=== PATIENT | female | born 1985 | race Caucasian/White ===

== ENCOUNTER 2019-06-27 14:32 | Emergency (ER) | payer OTHER, SELFPAY ==
[2019-06-27 14:44] VITALS: BP 118/73; PULSE 72; RESP 16; TEMP 37; O2SAT 99
--- NOTE | 2019-06-27 14:57 | ED.LOWEXIN ---
HPI - Extremity Injury (Lower) General Chief Complaint: Extremity Injury, Lower Stated Complaint: R/knee injury Time Seen by Provider: 06/27/19 14:58 Source: patient and RN notes reviewed History of Present Illness HPI Narrative: Patient is a 34-year-old female presents the urgent care with complaints of right knee pain. Patient states that she had surgery approximately 6 months ago and she twisted it yesterday while walking on some yard rocks. 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 Patient states that she did follow-up with her orthopedic, who will not see her because of her insurance change. Patient has been using ibuprofen without much relief. Patient is tearful. No other acute complaints. No acute distress noted. Patient with plan of care. Related Data Allergies Allergy/AdvReac Type Severity Reaction Status Date / Time No Known Allergies Allergy Mild Verified 06/27/19 15:00 Review of Systems Review of Systems: Narrative: CONSTITUTIONAL: Denies fever, chills, or sweats. EYES: Denies visual changes, redness, or discharge. ENT: Denies rhinorrhea, congestion, sore throat, or otalgia. CARDIOVASCULAR: Denies chest pain, palpitations, or edema. RESPIRATORY: Denies cough or dyspnea. GASTROINTESTINAL: Denies abdominal pain, nausea, vomiting, or diarrhea. GENITOURINARY: Denies dysuria or hematuria. SKIN: Denies rash or itching. MUSCULOSKELETAL: Reports of right knee pain NEUROLOGIC: Denies headache, numbness, or weakness. All other systems reviewed are negative, except as documented in HPI. PMFSH Comments At the time of my signature, I reviewed and agree with the nursing past medical, surgical, social, and family history. There is no relevant family history pertinent to the patient complaint. Exam Narrative: Exam Narrative: GENERAL: This is a well-nourished, well-developed patient, in no apparent distress. HEAD: normocephalic, atraumatic. EYES: PERRL. Sclera clear/white. Vision is grossly intact. EARS: External ears normal NOSE: External nose normal with no obvious nasal discharge THROAT: Mucous membranes moist NECK: Neck supple CARDIOVASCULAR: Regular rate and rhythm without murmurs, gallops, or rubs. RESPIRATORY: Clear to auscultation. Breath sounds equal bilaterally. No wheezes, rales, or rhonchi. SKIN: warm, intact with no suspicious lesions or rash, good texture and turgor. NEURO: awake, alert, and oriented to person, place and time. There were no obvious focal neurologic abnormalities. EXTREMITIES: Slight edema and ecchymosis noted to the right anterior knee without obvious deformity. Moderate tenderness to the anterior joint space. Course Vital Signs Vital signs: Vital Signs Temperature 98.6 F 06/27/19 14:44 Pulse Rate 72 06/27/19 14:44 Respiratory Rate 16 06/27/19 14:44 Blood Pressure 118/73 06/27/19 14:44 Pulse Oximetry 99 06/27/19 14:44 Temperature 98.6 F 06/27/19 14:44 Pulse Rate 72 06/27/19 14:44 Respiratory Rate 16 06/27/19 14:44 Blood Pressure 118/73 06/27/19 14:44 Pulse Oximetry 99 06/27/19 14:44 Reviewed MDM - Extremity Injury (Lower) MDM Narrative Medical decision making narrative: Advised the patient to wear the knee immobilizer as directed. Continue to use crutches as directed until activity as tolerated. Use pain medication as needed. Make sure to eat and drink with the medication. Elevate and continue to use ice for comfort/pain. Follow-up with orthopedic as directed within 1 week for reevaluation. Differential Diagnosis Differential diagnosis: Likely acute internal derangement of knee Critical Care Time Critical Care Time Critical Care Time: No Discharge Plan Discharge Clinical Impression: Strain of right knee Qualifiers: Encounter type: initial encounter Qualified Code(s): S86.911A - Strain of unspecified muscle(s) and tendon(s) at lower leg level, right leg, initial encounter Patien
== END 2019-06-27 15:15 | disposition home or self-care (01) ==
PROVIDERS: Emergency Provider Nurse Practitioner Family
DX: S86.811A Strain of other muscle(s) and tendon(s) at lower leg level, right leg, initial encounter (principal); X50.9XXA Other and unspecified overexertion or strenuous movements or postures, initial encounter
CPT/HCPCS: 99203; G0463; L1830

== ENCOUNTER 2020-10-15 18:24 | Emergency (ER) | payer OTHER, SELFPAY ==
--- NOTE | ~2020-10-15 | XR_ITS ---
XR chest 2V DATE: 10/15/2020 18:58 INDICATION: Cough, shortness of breath. Possible exposure distal for. TECHNIQUE: 2 views COMPARISON: 03/04/2010 AP chest FINDINGS: Normal heart size. No hilar or mediastinal enlargement. Bilateral hyperinflation. No pulmonary infiltrate or consolidation, pleural effusion or pulmonary vas cular congestion or pneumothorax. IMPRESSION: Bilateral hyperinflation; no active cardiopulmonary disease Reviewed, dictated and finalized at location A.
[2020-10-15 18:31] VITALS: BP 152/78; PULSE 84; RESP 18; TEMP 37.3; O2SAT 100
[2020-10-15 18:44] VITALS: BP 152/78; PULSE 84; RESP 18; TEMP 37.3; O2SAT 100
--- NOTE | 2020-10-15 19:02 | ED.URI ---
HPI - URI/Sore Throat General Chief Complaint: Upper Respiratory Infection Stated Complaint: Loss of taste, Throat burning Time Seen by Provider: 10/15/20 18:55 Source: patient Mode of arrival: ambulatory Limitations: no limitations History of Present Illness HPI Narrative: Nneka Bowen is a 35 yo female with no PMH. who is very Anxious[place] the sulfur spilled was and says that there were fumes at her house she started to experience shortness of breath in the middle the night and left her house this morning she says her throat is very scratchy she is having nasal discharge which is clear, she also says that she has no sense of taste and things have a metal taste to them. She is worried that she is having some respiratory distress due to either exposure or some virus She is a smoker and occasional drinker family history includes hypertension and her uncle who lives with her schizophrenic Related Data Allergies Allergy/AdvReac Type Severity Reaction Status Date / Time No Known Allergies Allergy Mild Verified 10/15/20 18:43 Review of Systems Review of Systems: Narrative: CONSTITUTIONAL: Denies fever, chills, sweats. EYES: Denies visual changes, redness, discharge. ENT: Has rhinorrhea, no congestion, has sore throat, otalgia. CARDIOVASCULAR: Denies chest pain, palpitations, edema. RESPIRATORY: Denies dyspnea, wheezing, mild dry cough GASTROINTESTINAL: Denies abdominal pain, nausea, vomiting, diarrhea. GENITOURINARY: Denies dysuria, hematuria, abnormal discharge SKIN: Denies rash or itching. NEUROLOGIC: Denies numbness, or focal weakness. PSYCHIATRIC: Has anxiety no depression. [facility] Past Medical History Medical History No acute medical problems Family History Family History Mother Hypertension Other Schizophrenia Social History Social History (Updated 10/15/20 @ 19:07 by Snow Rowland CNP) Smoking packs per day: 0.5 Smoking cigarettes per day: 10.0 Smoking status: Current every day smoker Tobacco type: cigarettes Alcohol intake: current Comments At time of signature, I agree with nursing past medical, surgical, social and family history. There is no relevant family history pertinent to the presenting complaint. Patient is very anxious and blood pressure is elevated will refer to primary care physician at discharge Exam Narrative: Exam Narrative: GENERAL: This is a well-nourished, well-developed patient, in mild distress. States feels short of breath HEAD: normocephalic, atraumatic. EYES: PSclera clear/white. Vision is grossly intact. EARS: External ears normal, auditory canals clear and without drainage, TMs normal without perforation. Hearing grossly intact. NOSE: External nose normal without nasal discharge, nares without redness, has rhinorrhea. THROAT: Mucous membranes moist, posterior pharynx erythema with clear drainage and posterior pharynx NECK: Neck supple, non-tender CARDIOVASCULAR: Regular rate and rhythm without murmurs, gallops, or rubs. RESPIRATORY: Clear to auscultation. Breath sounds equal bilaterally. No wheezes, rales, or rhonchi. GASTROINTESTINAL: Abdomen soft, SKIN: warm, intact with no suspicious lesions or rash, good texture and turgor. NEURO: awake, alert, and oriented to person, place and time. There were no obvious focal neurologic abnormalities. Steady gait EXTREMITIES: Normal range of motion. BACK: Nontender without deformity Course Course Emergency Course: Patient came to [facility] with complaints of feeling shortness of breath and discharge and loss of taste due to potential exposure to sulfuric acid spill and or other viral illness such as Covid Covid rapid was negative -PCR sent Chest x-ray shows bilateral hyperinflation no pleural effusion or pulmonary vascularity Strep test negative We will give patient prednisone and albuterol i
[2020-10-18 21:52] LABS: SARS-CoV-2 RNA PCR Negative
== END 2020-10-15 19:32 | disposition home or self-care (01) ==
PROVIDERS: Emergency Provider Nurse Practitioner
DX: J06.9 Acute upper respiratory infection, unspecified (principal); Z77.098 Contact with and (suspected) exposure to other hazardous, chiefly nonmedicinal, chemicals; Z20.822 Contact with and (suspected) exposure to COVID-19; F17.210 Nicotine dependence, cigarettes, uncomplicated
CPT/HCPCS: 71046; 87081; 87426; 87880; 99213; C9803; G0463; U0003; U0005

== ENCOUNTER 2021-06-19 13:02 | Emergency (ER) | payer OTHER, SELFPAY ==
--- NOTE | ~2021-06-19 | XR_ITS ---
EXAMINATION: XR hip BI 2V w AP pelvis EXAM DATE: 06/19/2021 14:39 INDICATION: Generalized Bruising And Soreness From Multiple Falls TECHNIQUE: Each hip imaged independently (separate right and also left hip) crosstable lateral and ' frog-leg' and frontal projections for interpretation. Frontal projection pelvis. There is no prior study for comparison. FINDINGS: No radiographic evidence of hip avascular necrosis. Left femoral neck bone island. There is minimal symmetric bilateral hip primary osteoarthritis. There are no acute fractures or dislocatio ns identified. There is no subcutaneous gas. The soft tissue is unremarkable. There are no radiop aque foreign bodies. IMPRESSION: 1. XR hip BI 2V w AP pelvis exam without acute osseous findings. Reviewed, dictated and finalized at location . [facility]
--- NOTE | ~2021-06-19 | XR_ITS ---
XR ribs LT 2V 06/19/2021 13:22 Indication: Status post fall. Left shoulder pain. Procedure: 3 views of the left ribs Comparison: 10/15/2020 Findings: No acute displaced left rib fracture. There is a nondisplaced fracture of the left humeral head at the lesser tuberosity. There is anatomic alignment of the shoulder. No significant soft tissu e abnormality.. Impression: 1: Nondisplaced fracture left humeral head at the lesser tuberosity. 2: No acute displaced left rib fracture. Reviewed, dictated and finalized at location A. R OPERATOR Impression: 1: Nondisplaced fracture left humeral head at the lesser tuberosity. 2: No acute displaced left rib fracture.
--- NOTE | ~2021-06-19 | XR_ITS ---
EXAMINATION: XR hand RT min 3V EXAM DATE: 06/19/2021 14:39 INDICATION: Dorsal Bruising From Multiple Falls TECHNIQUE: Right hand frontal, lateral and oblique projections obtained and reviewed. There is no pr ior study for comparison. FINDINGS: There is an old right 5th metacarpal shaft fracture. There are no acute fractures or disloc ations identified. There is no subcutaneous gas. The soft tissue is unremarkable. There are no ra diopaque foreign bodies. IMPRESSION: 1. XR hand RT min 3V exam without acute osseous findings. Reviewed, dictated and finalized at location G. SECURITY ARCHITECT
--- NOTE | ~2021-06-19 | XR_ITS ---
EXAMINATION: XR forearm RT 2V EXAM DATE: 06/19/2021 14:39 INDICATION: Generalized Bruising And Soreness From Multiple Falls TECHNIQUE: Right forearm frontal and lateral projections obtained and reviewed. There is no prior st udy for comparison. FINDINGS: There are no acute fractures or dislocations identified. There is no subcutaneous gas. Th e soft tissue is unremarkable. There are no radiopaque foreign bodies. IMPRESSION: 1. XR forearm RT 2V exam without acute osseous findings. Reviewed, dictated and finalized at location G. X SYSTEMS ADMINISTRATOR
[2021-06-19 13:08] VITALS: BP 107/68; PULSE 86; RESP 16; TEMP 37.3; O2SAT 100
--- NOTE | 2021-06-19 14:52 | ED.GENADULT ---
HPI - General Adult General Chief complaint: Back Pain/Injury Stated complaint: rib injury Source: patient Mode of arrival: ambulatory Limitations: no limitations History of Present Illness HPI narrative: Patient presents for evaluation after sustaining a fall 3 days ago. She indicates she fell down steps at home after she slipped on a shoe. She did hit her head. No LOC. Not on blood thinners. No vomiting since that time. She did land on her buttocks. She has bruising to her bilateral buttocks, right hand, right forearm, posterior aspect of proximal left upper arm and posterior left ribs. Reports pain in the right arm is 4 out of 10, right hand 5 out of 10, left upper arm 4 out of 10, bilateral buttocks 4 out of 10, left ribs 10 out of 10. Her primary concern is her left rib pain. She feels like she has a rib fracture. Deep inspiration and movement make her symptoms worse. She has taken tylenol for her pain with some improvement. She states pain from her posterior ribs is shooting pain into her sternum. She states that she did fracture her proximal left humerus three months ago after another fall. She wore a sling for one month. She states that orthopedist, Dr. Burton, the fracture is a small piece of bone pointing up . Related Data Allergies Allergy/AdvReac Type Severity Reaction Status Date / Time No Known Allergies Allergy Mild Verified 06/19/21 13:53 Review of Systems Review of Systems: CONSTITUTIONAL: Denies fever, chills, or sweats. EYES: Denies visual changes, redness, or discharge. ENT: Denies rhinorrhea, congestion, sore throat, or otalgia. CARDIOVASCULAR: Reports chest pain. Denies palpitations, or edema. RESPIRATORY: Denies cough or dyspnea. GASTROINTESTINAL: Denies abdominal pain, nausea, vomiting, or diarrhea. GENITOURINARY: Denies dysuria or hematuria. SKIN: Reports bruising to the right hand, forearm, bilateral buttocks, left upper arm, left ribs MUSCULOSKELETAL: Reports pain in right hand, right forearm, left upper arm, bilateral buttocks BACK: Pain in left posterior ribs NEUROLOGIC: Denies headache, numbness, dizziness, or weakness. PSYCHIATRIC: Denies anxiety or depression. [facility] Past Medical History Medical History (Updated 06/19/21 @ 15:07 by Ko Renteria, SCARFER OPERATOR, ) Left humeral fracture Surgical History Surgical History No pertinent past surgical history Family History Family History Mother Hypertension Other Schizophrenia Social History Social History Smoking packs per day: 0.5 Smoking cigarettes per day: 10.0 Smoking status: Current every day smoker Tobacco type: cigarettes Alcohol intake: current Alcohol use details: Rarely Substance use: never Living arrangements: with family Gender identity (if verbalized by the patient): Female Sexual Orientation (if Verbalized by the Patient): Straight or Heterosexual Spiritual care concerns: No Exam Narrative: GENERAL: Well-appearing, well-nourished, and in no acute distress. HEAD: Normocephalic, atraumatic. EYES: PERRLA and EOMI. ENT: Nares clear, no rhinorrhea or epistaxis. Mucous membranes moist. Oropharynx without tonsillar hypertrophy exudate or other lesions. Bilateral TMs pearly orona nonbulging NECK: Supple. No adenopathy or masses. No carotid bruits or JVD CHEST: Clear to auscultation. No respiratory distress. No wheezes rales or rhonchi HEART: Regular rate and rhythm. No murmur heard. Normal peripheral pulses. ABDOMEN: Soft, nontender, nondistended, normal active bowel sounds. EXTREMITIES: Tenderness noted to proximal right hand and throughout right forearm. Tenderness noted to bilateral buttocks BACK:Tenderness noted to posterior left lower ribs SKIN: Ecchymosis noted to the posterior aspect of the proximal left upper arm
== END 2021-06-19 15:35 | disposition home or self-care (01) ==
PROVIDERS: Emergency Provider Nurse Practitioner; PCP Family Medicine
DX: S60.221A Contusion of right hand, initial encounter (principal); S50.11XA Contusion of right forearm, initial encounter; S20.212A Contusion of left front wall of thorax, initial encounter; S30.0XXA Contusion of lower back and pelvis, initial encounter; W00.0XXA Fall on same level due to ice and snow, initial encounter; F17.210 Nicotine dependence, cigarettes, uncomplicated
CPT/HCPCS: 71100; 73090; 73130; 73521; 81025; 99214; G0463